=== PATIENT | male | born 1975 | race African-American/Black ===

== ENCOUNTER 2020-03-21 02:47 | Inpatient (IN) ==
[2020-03-21] MEDS ORDERED: ONDANSETRON 4 MG/2 ML VIAL IV PRN (05:14)
[2020-03-21] MEDS ORDERED: diphenhydrAMINE CAP 25 MG CAPSULE PO PRN (05:14)
[2020-03-21] MEDS ORDERED: hydrALAZINE 20 MG/1 ML VIAL IV PRN (05:14)
[2020-03-21] MEDS ORDERED: DEXTROSE 50% 25 GM/50 ML VIAL IV PRN (05:14)
[2020-03-21] MEDS ORDERED: NICOTINE 21 MG/24 HR PATCH TRANSDERM PRN (05:14)
[2020-03-21] MEDS ORDERED: MORPHINE 4 MG/1 ML VIAL IV PRN (05:14)
[2020-03-21] MEDS ORDERED: GLUCAGON 1 MG VIAL IM PRN (05:14)
[2020-03-21] MEDS ORDERED: ACETAMINOPHEN 325 MG TABLET PO PRN (05:14)
[2020-03-21] MEDS: ALBUTEROL/IPRATROPIUM 3 ML NEB RESP TX SCH ×3 (07:24→19:02)
[2020-03-21 07:25] LABS: Basophils # 0.1 10*3/uL (0.0-0.2); Basophils % 1.3 % (0.0-0.8); Eosinophils # 0.2 10*3/uL (0.0-0.87); Eosinophils % 3.1 % (0.00-10.9); Hemoglobin 12.7 GM/DL (14.0-18.0); Immature Granulocytes % 0.1 %; Immature Granulocytes Absolute 0.01 #; Lymphocytes # 3.4 10*3/uL (1.4-4.0); Lymphocytes % 45.2 % (21.2-54.2); Mean Corpuscular HGB Conc 30.2 GM/DL (32-36); Mean Corpuscular Volume 77.8 FL (87-102); Mean Platelet Volume 10.3 FL (9.6-12.0); Monocytes % 10.5 % (1.7-12.7); NRBC # 0.08 10*3/uL; Neutrophils % 39.8 % (38.7-73.9); Platelet Count 145 T/CUMM (130-400); Red Cell Distribution Width 21.1 % (9.3-17.3); White Blood Count 7.4 T/CUMM (4-12)
[2020-03-21 07:26] LABS: Albumin 2.6 G/DL (3.4-5.0); Bilirubin,Total 1.5 MG/DL (0.2-1.0); Calcium 8.6 MG/DL (8.5-10.1); Osmolality,Calculated 280.4 MOS/KG (273-304); Risk Ratio 5.95; Thyroid Stimulating Hormone 2.29 uIU/ml (0.358-3.74); Total Protein 7.9 G/DL (6.4-8.3); VLDL CHOLESTEROL 29.6 MG/DL
[2020-03-21 07:39] LABS: Eosinophils 2 % (0-10); Lymphocytes 34 % (20-55); Segmented Neutrophils 55 % (50-85); Total Cells Counted 100
[2020-03-21 07:40] LABS: Hypochromasia 1+; Macrocytosis Slight; Ovalocytes Slight; Platelet Estimate Adequate; Polychromasia Slight
[2020-03-21 07:41] LABS: Atypical Lymphocytes Few
[2020-03-21] MEDS: carvediloL 3.125 MG TABLET PO SCH ×2 (08:44→21:05)
[2020-03-21] MEDS: ASPIRIN EC 81 MG TABLET PO SCH (08:44)
[2020-03-21] MEDS ORDERED: FUROSEMIDE 40 MG/4 ML VIAL IV SCH (09:00)
[2020-03-21] MEDS: FUROSEMIDE 40 MG/4 ML VIAL IV SCH ×2 (09:02→15:20)
[2020-03-21 09:43] LABS: Bilirubin,Urine Negative (Negative); Blood, Urine Small mg/dL (Negative); Glucose,Urine (UA) Negative (Negative); Hyaline Casts,Urine 8 /LPF (0-3); Ketones,Urine Negative (Negative); Mucus,Urine Occasional /LPF (Occasional); Nitrite,Urine Negative (Negative); Protein,Urine Negative; RBC,Urine 1 /HPF (0-4); Urine Appearance CLEAR (Clear); Urine Color Yellow (Yellow); Urine Urobilinogen < 2.0 EU/DL (0.2-1.0); WBC,Urine 1 /HPF (0-6)
[2020-03-21] MEDS: SPIRONOLACTONE 25 MG TABLET PO SCH (09:48)
[2020-03-21 09:57] LABS: Barbiturates Screen,Urine Negative (Negative); Benzodiazepines Screen,Urine Negative (Negative); Cannabinoid Screen,Urine Negative (Negative); Opiate Screen,Urine Negative (Negative); Phencyclidine Screen,Urine Negative (Negative)
[2020-03-21] MEDS: SACUBITRIL/VALSARTAN 49-51 MG TABLET PO SCH ×2 (11:50→21:05)
[2020-03-21] MEDS ORDERED: SACUBITRIL/VALSARTAN 49-51 MG TABLET PO ONE (12:00)
[2020-03-22] MEDS: ALBUTEROL/IPRATROPIUM 3 ML NEB RESP TX SCH ×4 (00:04→19:37)
[2020-03-22 06:10] LABS: Calcium 8.3 MG/DL (8.5-10.1); Osmolality,Calculated 275.8 MOS/KG (273-304)
[2020-03-22 06:29] LABS: Basophils # 0.1 10*3/uL (0.0-0.2); Basophils % 1.1 % (0.0-0.8); Eosinophils # 0.3 10*3/uL (0.0-0.87); Hematocrit 42.6 VOL% (42.0-52.0); Hemoglobin 12.9 GM/DL (14.0-18.0); Immature Granulocytes % 0.2 %; Immature Granulocytes Absolute 0.01 #; Lymphocytes # 2.3 10*3/uL (1.4-4.0); Lymphocytes % 34.2 % (21.2-54.2); Mean Corpuscular HGB Conc 30.3 GM/DL (32-36); Mean Platelet Volume 10.4 FL (9.6-12.0); Monocytes % 9.9 % (1.7-12.7); NRBC # 0.04 10*3/uL; Neutrophils % 49.6 % (38.7-73.9); Red Blood Count 5.53 MC/CUMM (3.8-5.5); Red Cell Distribution Width 20.2 % (9.3-17.3); White Blood Count 6.6 T/CUMM (4-12)
[2020-03-22 06:41] LABS: Platelet Count 131 T/CUMM (130-400)
[2020-03-22 06:52] LABS: Anisocytosis 2+; Platelet Estimate Adequate
[2020-03-22 06:53] LABS: Burr Cells 1+; Macrocytosis Slight; Polychromasia Slight
[2020-03-22] MEDS: SACUBITRIL/VALSARTAN 49-51 MG TABLET PO SCH ×2 (09:00→21:45)
[2020-03-22] MEDS: SPIRONOLACTONE 25 MG TABLET PO SCH (09:00)
[2020-03-22] MEDS: ASPIRIN EC 81 MG TABLET PO SCH (09:00)
[2020-03-22] MEDS: carvediloL 3.125 MG TABLET PO SCH ×2 (09:00→21:45)
[2020-03-22] MEDS: FUROSEMIDE 40 MG/4 ML VIAL IV SCH ×2 (09:01→16:19)
[2020-03-23] MEDS: ALBUTEROL/IPRATROPIUM 3 ML NEB RESP TX SCH ×4 (00:43→18:51)
[2020-03-23 05:15] LABS: Basophils # 0.1 10*3/uL (0.0-0.2); Basophils % 1.1 % (0.0-0.8); Eosinophils # 0.3 10*3/uL (0.0-0.87); Eosinophils % 4.5 % (0.00-10.9); Hematocrit 40.2 VOL% (42.0-52.0); Hemoglobin 12.1 GM/DL (14.0-18.0); Immature Granulocytes % 0.3 %; Immature Granulocytes Absolute 0.02 #; Lymphocytes # 2.8 10*3/uL (1.4-4.0); Lymphocytes % 41.8 % (21.2-54.2); Mean Corpuscular HGB Conc 30.1 GM/DL (32-36); Mean Corpuscular Volume 77.6 FL (87-102); Mean Platelet Volume 9.5 FL (9.6-12.0); Monocytes % 10.2 % (1.7-12.7); NRBC # 0.07 10*3/uL; Neutrophils % 42.1 % (38.7-73.9); Platelet Count 213 T/CUMM (130-400); Red Blood Count 5.18 MC/CUMM (3.8-5.5); Red Cell Distribution Width 20.1 % (9.3-17.3); White Blood Count 6.6 T/CUMM (4-12)
[2020-03-23 05:54] LABS: Eosinophils 7 % (0-10); Lymphocytes 31 % (20-55); Microcytosis 1+; Platelet Estimate Normal; Segmented Neutrophils 53 % (50-85); Total Cells Counted 100
[2020-03-23 06:02] LABS: Calcium 8.1 MG/DL (8.5-10.1)
[2020-03-23] MEDS: SACUBITRIL/VALSARTAN 49-51 MG TABLET PO SCH ×2 (09:14→21:26)
[2020-03-23] MEDS: SPIRONOLACTONE 25 MG TABLET PO SCH (09:15)
[2020-03-23] MEDS: carvediloL 3.125 MG TABLET PO SCH (09:15)
[2020-03-23] MEDS: FUROSEMIDE 40 MG/4 ML VIAL IV SCH ×2 (09:15→15:48)
[2020-03-23] MEDS: ASPIRIN EC 81 MG TABLET PO SCH (09:15)
[2020-03-23] MEDS: carvediloL 6.25 MG TABLET PO SCH (21:25)
[2020-03-24] MEDS: ALBUTEROL/IPRATROPIUM 3 ML NEB RESP TX SCH ×4 (01:26→18:55)
[2020-03-24 06:16] LABS: Calcium 8.2 MG/DL (8.5-10.1)
[2020-03-24 06:24] LABS: Basophils # 0.1 10*3/uL (0.0-0.2); Eosinophils # 0.3 10*3/uL (0.0-0.87); Eosinophils % 4.9 % (0.00-10.9); Hematocrit 42.2 VOL% (42.0-52.0); Hemoglobin 12.6 GM/DL (14.0-18.0); Immature Granulocytes % 0.2 %; Immature Granulocytes Absolute 0.01 #; Lymphocytes # 2.4 10*3/uL (1.4-4.0); Lymphocytes % 42.5 % (21.2-54.2); Mean Corpuscular HGB Conc 29.9 GM/DL (32-36); Mean Corpuscular Volume 78.7 FL (87-102); Mean Platelet Volume 9.5 FL (9.6-12.0); Monocytes % 11.7 % (1.7-12.7); NRBC # 0.03 10*3/uL; Neutrophils % 39.7 % (38.7-73.9); Platelet Count 151 T/CUMM (130-400); Red Blood Count 5.36 MC/CUMM (3.8-5.5); Red Cell Distribution Width 20.1 % (9.3-17.3); White Blood Count 5.7 T/CUMM (4-12)
[2020-03-24] MEDS ORDERED: MAGNESIUM SULF RIDER 2 GM in PREMIX 1 EACH IV ONE (08:09)
[2020-03-24] MEDS: SPIRONOLACTONE 25 MG TABLET PO SCH (09:43)
[2020-03-24] MEDS: FUROSEMIDE 40 MG/4 ML VIAL IV SCH ×2 (09:43→16:27)
[2020-03-24] MEDS: SACUBITRIL/VALSARTAN 49-51 MG TABLET PO SCH ×2 (09:43→21:35)
[2020-03-24] MEDS: ASPIRIN EC 81 MG TABLET PO SCH (09:43)
[2020-03-24] MEDS: carvediloL 6.25 MG TABLET PO SCH ×2 (10:11→21:35)
[2020-03-25] MEDS: ALBUTEROL/IPRATROPIUM 3 ML NEB RESP TX SCH ×4 (01:47→19:15)
[2020-03-25 05:55] LABS: Calcium 8.5 MG/DL (8.5-10.1)
[2020-03-25 06:57] LABS: Basophils # 0.1 10*3/uL (0.0-0.2); Basophils % 1.2 % (0.0-0.8); Eosinophils # 0.3 10*3/uL (0.0-0.87); Hematocrit 40.4 VOL% (42.0-52.0); Hemoglobin 12.2 GM/DL (14.0-18.0); Immature Granulocytes % 0.3 %; Immature Granulocytes Absolute 0.02 #; Lymphocytes # 2.3 10*3/uL (1.4-4.0); Lymphocytes % 40.4 % (21.2-54.2); Mean Corpuscular HGB Conc 30.2 GM/DL (32-36); Mean Corpuscular Volume 77.4 FL (87-102); Mean Platelet Volume 9.6 FL (9.6-12.0); Monocytes % 11.6 % (1.7-12.7); NRBC # 0.02 10*3/uL; Neutrophils % 41.5 % (38.7-73.9); Platelet Count 96 T/CUMM (130-400); Red Blood Count 5.22 MC/CUMM (3.8-5.5); Red Cell Distribution Width 19.8 % (9.3-17.3); White Blood Count 5.8 T/CUMM (4-12)
[2020-03-25 07:02] LABS: Eosinophils 11 % (0-10); Lymphocytes 20 % (20-55); Segmented Neutrophils 56 % (50-85); Total Cells Counted 100
[2020-03-25 07:03] LABS: Hypochromasia 1+; Microcytosis 1+
[2020-03-25] MEDS: carvediloL 6.25 MG TABLET PO SCH ×2 (08:47→20:45)
[2020-03-25] MEDS: SPIRONOLACTONE 25 MG TABLET PO SCH (08:47)
[2020-03-25] MEDS: ASPIRIN EC 81 MG TABLET PO SCH (08:47)
[2020-03-25] MEDS: FUROSEMIDE 40 MG/4 ML VIAL IV SCH ×2 (08:47→15:18)
[2020-03-25] MEDS: SACUBITRIL/VALSARTAN 49-51 MG TABLET PO SCH ×2 (08:47→20:45)
[2020-03-26] MEDS: ALBUTEROL/IPRATROPIUM 3 ML NEB RESP TX SCH ×4 (01:04→19:41)
[2020-03-26 06:46] LABS: Calcium 8.6 MG/DL (8.5-10.1); Osmolality,Calculated 277.7 MOS/KG (273-304)
[2020-03-26 07:09] LABS: Basophils # 0.1 10*3/uL (0.0-0.2); Basophils % 1.3 % (0.0-0.8); Eosinophils # 0.3 10*3/uL (0.0-0.87); Eosinophils % 4.2 % (0.00-10.9); Hematocrit 39.7 VOL% (42.0-52.0); Immature Granulocytes % 0.3 %; Immature Granulocytes Absolute 0.02 #; Lymphocytes # 2.7 10*3/uL (1.4-4.0); Lymphocytes % 42.3 % (21.2-54.2); Mean Corpuscular HGB Conc 30.5 GM/DL (32-36); Mean Corpuscular Volume 76.5 FL (87-102); Mean Platelet Volume 9.6 FL (9.6-12.0); NRBC # 0.02 10*3/uL; Neutrophils % 39.9 % (38.7-73.9); Red Blood Count 5.19 MC/CUMM (3.8-5.5); Red Cell Distribution Width 19.8 % (9.3-17.3); White Blood Count 6.3 T/CUMM (4-12)
[2020-03-26 07:11] LABS: Hemoglobin 12.1 GM/DL (14.0-18.0)
[2020-03-26 07:12] LABS: Platelet Count 42 T/CUMM (130-400)
[2020-03-26 07:13] LABS: Hypochromasia 1+; Platelet Estimate Decreased
[2020-03-26 07:14] LABS: Microcytosis 1+
[2020-03-26] MEDS: SPIRONOLACTONE 25 MG TABLET PO SCH (09:05)
[2020-03-26] MEDS: carvediloL 6.25 MG TABLET PO SCH ×2 (09:05→20:57)
[2020-03-26] MEDS: ASPIRIN EC 81 MG TABLET PO SCH (09:05)
[2020-03-26] MEDS: FUROSEMIDE 40 MG/4 ML VIAL IV SCH ×2 (09:05→16:19)
[2020-03-26] MEDS: SACUBITRIL/VALSARTAN 49-51 MG TABLET PO SCH ×2 (09:06→20:57)
[2020-03-26] MEDS: SODIUM CHLORIDE 0.9% 1,000 ML IV SCH (09:07)
[2020-03-26] MEDS ORDERED: POTASSIUM CHLORIDE RIDER 10 MEQ in PREMIX 1 EACH IV PRN (12:00)
[2020-03-26] MEDS ORDERED: MAGNESIUM SULF RIDER 2 GM in PREMIX 1 EACH IV PRN (12:00)
[2020-03-27] MEDS: ALBUTEROL/IPRATROPIUM 3 ML NEB RESP TX SCH ×4 (00:48→19:15)
[2020-03-27 05:47] LABS: Calcium 8.8 MG/DL (8.5-10.1); Osmolality,Calculated 275.8 MOS/KG (273-304)
[2020-03-27] MEDS: SODIUM CHLORIDE 0.9% 1,000 ML IV SCH (06:13)
[2020-03-27] MEDS ORDERED: DIAZEPAM 5 MG TABLET PO ONE (07:00)
[2020-03-27] MEDS ORDERED: diphenhydrAMINE CAP 25 MG CAPSULE PO ONE (07:00)
[2020-03-27 07:08] LABS: Basophils # 0.1 10*3/uL (0.0-0.2); Basophils % 1.4 % (0.0-0.8); Eosinophils # 0.3 10*3/uL (0.0-0.87); Eosinophils % 4.3 % (0.00-10.9); Hematocrit 42.6 VOL% (42.0-52.0); Immature Granulocytes % 0.2 %; Immature Granulocytes Absolute 0.01 #; Lymphocytes # 2.5 10*3/uL (1.4-4.0); Lymphocytes % 38.4 % (21.2-54.2); Mean Corpuscular HGB Conc 29.1 GM/DL (32-36); Mean Corpuscular Volume 78.3 FL (87-102); Mean Platelet Volume 10.6 FL (9.6-12.0); Monocytes % 11.9 % (1.7-12.7); Neutrophils % 43.8 % (38.7-73.9); Platelet Count 131 T/CUMM (130-400); Red Blood Count 5.44 MC/CUMM (3.8-5.5); Red Cell Distribution Width 19.9 % (9.3-17.3); White Blood Count 6.5 T/CUMM (4-12)
[2020-03-27 07:52] LABS: Hemoglobin 12.4 GM/DL (14.0-18.0)
[2020-03-27 07:56] LABS: Hypochromasia 1+; Microcytosis Slight; Ovalocytes Slight
[2020-03-27] MEDS: ASPIRIN EC 81 MG TABLET PO SCH (08:54)
[2020-03-27] MEDS: SACUBITRIL/VALSARTAN 49-51 MG TABLET PO SCH ×2 (08:54→20:46)
[2020-03-27] MEDS: carvediloL 6.25 MG TABLET PO SCH (08:55)
[2020-03-27] MEDS: SPIRONOLACTONE 25 MG TABLET PO SCH (08:55)
[2020-03-27] MEDS: FUROSEMIDE 40 MG/4 ML VIAL IV SCH ×2 (10:37→16:57)
[2020-03-27] MEDS: carvediloL 12.5 MG TABLET PO SCH (20:46)
[2020-03-28] MEDS: ALBUTEROL/IPRATROPIUM 3 ML NEB RESP TX SCH ×2 (02:07→07:21)
[2020-03-28] MEDS: SODIUM CHLORIDE 0.9% 1,000 ML IV SCH (02:12)
[2020-03-28 06:58] LABS: Basophils # 0.1 10*3/uL (0.0-0.2); Basophils % 1.2 % (0.0-0.8); Eosinophils # 0.2 10*3/uL (0.0-0.87); Hematocrit 41.6 VOL% (42.0-52.0); Immature Granulocytes % 0.2 %; Immature Granulocytes Absolute 0.01 #; Lymphocytes # 2.5 10*3/uL (1.4-4.0); Lymphocytes % 43.6 % (21.2-54.2); Mean Corpuscular HGB Conc 29.3 GM/DL (32-36); Mean Corpuscular Volume 78.5 FL (87-102); Mean Platelet Volume 9.7 FL (9.6-12.0); Monocytes % 12.5 % (1.7-12.7); Neutrophils % 38.5 % (38.7-73.9); Platelet Count 111 T/CUMM (130-400); Red Cell Distribution Width 19.6 % (9.3-17.3); White Blood Count 5.8 T/CUMM (4-12)
[2020-03-28 07:27] LABS: Calcium 8.7 MG/DL (8.5-10.1); Osmolality,Calculated 269.2 MOS/KG (273-304)
[2020-03-28 08:04] LABS: Hemoglobin 12.2 GM/DL (14.0-18.0)
[2020-03-28] MEDS: ASPIRIN EC 81 MG TABLET PO SCH (08:12)
[2020-03-28] MEDS: SACUBITRIL/VALSARTAN 49-51 MG TABLET PO SCH (08:12)
[2020-03-28] MEDS: SPIRONOLACTONE 25 MG TABLET PO SCH (08:12)
[2020-03-28 08:13] LABS: Hypochromasia 2+; Microcytosis 1+
[2020-03-28] MEDS: FUROSEMIDE 40 MG/4 ML VIAL IV SCH (08:13)
[2020-03-28 08:16] LABS: Ovalocytes Slight
[2020-03-28] MEDS: carvediloL 12.5 MG TABLET PO SCH (08:16)
[2020-03-28] MEDS ORDERED: KETOROLAC 30 MG/1 ML VIAL IV ONE (08:36)
[2020-03-28] MEDS ORDERED: COLCHICINE 0.6 MG CAPSULE PO ONE (10:31)
[2020-03-28] MEDS ORDERED: predniSONE 10 MG TABLET PO SCH (12:00)
[2020-03-28 12:14] VITALS: BP 130/89
[2020-03-28] MEDS ORDERED: COLCHICINE 0.6 MG CAPSULE PO SCH (21:00)
[2020-03-29] MEDS ORDERED: FUROSEMIDE 40 MG TABLET PO SCH (09:00)
[2020-03-30] MEDS ORDERED: COLCHICINE 0.6 MG CAPSULE PO SCH (09:00)
== END 2020-03-28 14:05 | disposition home or self-care (01) | DRG 292 ==
LOC: N.TELEN → SUATTDRO 03:52
PROVIDERS: ADMIT Internal Medicine; ATTEND Internal Medicine

== ENCOUNTER 2020-04-09 08:08 | Inpatient (IN) ==
[2020-04-09 08:32] LABS: Basophils # 0.1 10*3/uL (0.0-0.2); Basophils % 0.3 % (0.0-0.8); Eosinophils % 0.3 % (0.00-10.9); Hematocrit 40.8 VOL% (42.0-52.0); Hemoglobin 12.3 GM/DL (14.0-18.0); Immature Granulocytes % 0.6 %; Immature Granulocytes Absolute 0.09 #; Lymphocytes # 1.9 10*3/uL (1.4-4.0); Lymphocytes % 13.5 % (21.2-54.2); Mean Corpuscular HGB Conc 30.1 GM/DL (32-36); Mean Corpuscular Volume 76.1 FL (87-102); Mean Platelet Volume 9.7 FL (9.6-12.0); Monocytes % 13.2 % (1.7-12.7); NRBC # 0.06 10*3/uL; Neutrophils % 72.1 % (38.7-73.9); Platelet Count 141 T/CUMM (130-400); Red Blood Count 5.36 MC/CUMM (3.8-5.5); Red Cell Distribution Width 19.3 % (9.3-17.3); White Blood Count 14.4 T/CUMM (4-12)
[2020-04-09 08:49] LABS: Hypochromasia 2+
[2020-04-09 08:50] LABS: Anisocytosis 1+; Microcytosis 1+; Ovalocytes Slight; Polychromasia Slight; Target Cells Slight
[2020-04-09 08:53] LABS: INR 1.4; PT Patient Result 14.4 SECS (9.8-11.9); Partial Thromboplastin Time 43.3 SECS (23.9-33.8)
[2020-04-09 08:55] LABS: Albumin 2.6 G/DL (3.4-5.0); Calcium 8.7 MG/DL (8.5-10.1); Osmolality,Calculated 275.8 MOS/KG (273-304); Total Protein 7.6 G/DL (6.4-8.3)
[2020-04-09] MEDS ORDERED: DIAZEPAM 5 MG TABLET PO STA (09:24)
[2020-04-09] MEDS ORDERED: diphenhydrAMINE CAP 50 MG CAPSULE PO STA (09:24)
[2020-04-09] MEDS ORDERED: diphenhydrAMINE CAP 25 MG CAPSULE ONE (09:28)
[2020-04-09] MEDS ORDERED: LIDOCAINE 1% 20 ML VIAL ONE (09:58)
[2020-04-09] MEDS ORDERED: HEPARIN/NACL 0.9% 2 UNITS/ML 1,000 ML IV ONE (09:58)
[2020-04-09] MEDS ORDERED: MIDAZOLAM 2 MG/2 ML VIAL ONE (10:12)
[2020-04-09] MEDS ORDERED: fentaNYL 100 MCG/2 ML VIAL ONE (10:12)
[2020-04-09] MEDS ORDERED: DOCUSATE SODIUM 100 MG CAPSULE PO PRN (10:15)
[2020-04-09] MEDS ORDERED: ALBUTEROL 2.5 MG/3 ML NEB RESP TX PRN (10:15)
[2020-04-09] MEDS ORDERED: ACETAMINOPHEN 325 MG TABLET PO PRN (10:15)
[2020-04-09] MEDS ORDERED: ONDANSETRON 4 MG/2 ML VIAL IV PRN (10:15)
[2020-04-09] MEDS ORDERED: HEPARIN 5,000 UNIT/1 ML VIAL ONE ×2 (10:18→11:39)
[2020-04-09] MEDS ORDERED: HEPARIN/NACL 0.9% 2 UNITS/ML 500 ML IV ONE (11:08)
[2020-04-09] MEDS ORDERED: CLOPIDOGREL 300 MG TABLET ONE (11:33)
[2020-04-09] MEDS ORDERED: FUROSEMIDE 40 MG/4 ML VIAL IV STA (12:26)
[2020-04-09] MEDS ORDERED: FUROSEMIDE 40 MG/4 ML VIAL ONE ×2 (12:26→12:28)
[2020-04-09 12:57] LABS: Bilirubin,Urine Negative (Negative); Blood, Urine Moderate mg/dL (Negative); Glucose,Urine (UA) Negative (Negative); Ketones,Urine Negative (Negative); Nitrite,Urine Negative (Negative); Protein,Urine Negative; RBC,Urine 37 /HPF (0-4); Squamous Epithelial Cell,Urine Occasional /HPF (0-10); Urine Appearance CLEAR (Clear); Urine Color Yellow (Yellow); Urine Specific Gravity > 1.060 (1.001-1.035); WBC,Urine 1 /HPF (0-6)
[2020-04-09] MEDS ORDERED: INFLUENZA VIRUS VACCINE 0.5 ML SYRINGE IM ONE (13:28)
[2020-04-09] MEDS ORDERED: PNEUMOCOCCAL VACCINE (23 VALENT) 0.5 ML VIAL IM ONE (13:50)
[2020-04-09] MEDS ORDERED: CLOPIDOGREL 300 MG TABLET PO ONE (13:53)
[2020-04-09] MEDS: RIVAROXABAN 15 MG TABLET PO SCH ×2 (14:37→16:17)
[2020-04-09] MEDS: FUROSEMIDE 40 MG/4 ML VIAL IV SCH (16:16)
[2020-04-09] MEDS: carvediloL 12.5 MG TABLET PO SCH (20:46)
[2020-04-09] MEDS: MAGNESIUM OXIDE 400 MG TABLET PO SCH (20:46)
[2020-04-10 04:20] LABS: Basophils % 0.3 % (0.0-0.8); Eosinophils % 0.2 % (0.00-10.9); Hematocrit 37.2 VOL% (42.0-52.0); Hemoglobin 11.2 GM/DL (14.0-18.0); Immature Granulocytes % 0.5 %; Immature Granulocytes Absolute 0.07 #; Lymphocytes # 1.5 10*3/uL (1.4-4.0); Lymphocytes % 10.5 % (21.2-54.2); Mean Corpuscular HGB Conc 30.1 GM/DL (32-36); Mean Corpuscular Volume 76.1 FL (87-102); NRBC # 0.04 10*3/uL; Neutrophils % 74.5 % (38.7-73.9); Platelet Count 124 T/CUMM (130-400); Red Blood Count 4.89 MC/CUMM (3.8-5.5); Red Cell Distribution Width 18.6 % (9.3-17.3); White Blood Count 14.2 T/CUMM (4-12)
[2020-04-10 04:28] LABS: INR 1.8
[2020-04-10 04:38] LABS: Hypochromasia 2+
[2020-04-10 04:39] LABS: Microcytosis 2+; Ovalocytes Slight; Target Cells Slight
[2020-04-10 04:41] LABS: Albumin 2.2 G/DL (3.4-5.0); Bilirubin,Total 2.6 MG/DL (0.2-1.0); Calcium 8.4 MG/DL (8.5-10.1); Osmolality,Calculated 275.1 MOS/KG (273-304); Risk Ratio 4.23; Total Protein 7.3 G/DL (6.4-8.3); VLDL CHOLESTEROL 11.6 MG/DL
[2020-04-10] MEDS ORDERED: ASPIRIN EC 81 MG TABLET PO SCH (09:00)
[2020-04-10] MEDS: CLOPIDOGREL 75 MG TABLET PO SCH (10:24)
[2020-04-10] MEDS: MAGNESIUM OXIDE 400 MG TABLET PO SCH ×2 (10:24→20:36)
[2020-04-10] MEDS: carvediloL 12.5 MG TABLET PO SCH ×2 (10:24→20:36)
[2020-04-10] MEDS: RIVAROXABAN 15 MG TABLET PO SCH ×2 (10:26→17:10)
[2020-04-10] MEDS: PANTOPRAZOLE 40 MG TABLET PO SCH (10:26)
[2020-04-10] MEDS: SPIRONOLACTONE 25 MG TABLET PO SCH (10:26)
[2020-04-10] MEDS: FUROSEMIDE 40 MG/4 ML VIAL IV SCH ×2 (10:27→17:07)
[2020-04-11 04:51] LABS: Basophils # 0.1 10*3/uL (0.0-0.2); Basophils % 0.3 % (0.0-0.8); Eosinophils # 0.1 10*3/uL (0.0-0.87); Eosinophils % 0.5 % (0.00-10.9); Hematocrit 33.3 VOL% (42.0-52.0); Hemoglobin 10.1 GM/DL (14.0-18.0); Immature Granulocytes % 0.6 %; Immature Granulocytes Absolute 0.09 #; Lymphocytes # 1.7 10*3/uL (1.4-4.0); Lymphocytes % 11.4 % (21.2-54.2); Mean Corpuscular HGB Conc 30.3 GM/DL (32-36); Mean Corpuscular Volume 75.9 FL (87-102); Mean Platelet Volume 10.6 FL (9.6-12.0); Monocytes % 13.7 % (1.7-12.7); NRBC # 0.03 10*3/uL; Neutrophils % 73.5 % (38.7-73.9); Platelet Count 166 T/CUMM (130-400); Red Blood Count 4.39 MC/CUMM (3.8-5.5); Red Cell Distribution Width 18.3 % (9.3-17.3); White Blood Count 14.6 T/CUMM (4-12)
[2020-04-11 05:06] LABS: Calcium 8.3 MG/DL (8.5-10.1); Osmolality,Calculated 270.2 MOS/KG (273-304)
[2020-04-11 05:17] LABS: Hypochromasia 1+; Microcytosis 1+
[2020-04-11] MEDS: FUROSEMIDE 40 MG/4 ML VIAL IV SCH (09:15)
[2020-04-11] MEDS: RIVAROXABAN 15 MG TABLET PO SCH ×2 (09:26→18:38)
[2020-04-11] MEDS: PANTOPRAZOLE 40 MG TABLET PO SCH (09:26)
[2020-04-11] MEDS: SPIRONOLACTONE 25 MG TABLET PO SCH (09:26)
[2020-04-11] MEDS: CLOPIDOGREL 75 MG TABLET PO SCH (09:26)
[2020-04-11] MEDS: MAGNESIUM OXIDE 400 MG TABLET PO SCH ×2 (09:26→21:15)
[2020-04-11] MEDS: carvediloL 12.5 MG TABLET PO SCH ×2 (09:26→21:15)
[2020-04-11] MEDS ORDERED: GLUCAGON 1 MG VIAL IM PRN ×2 (15:32→16:07)
[2020-04-11] MEDS ORDERED: DEXTROSE 50% 25 GM/50 ML VIAL IV PRN ×2 (15:32→16:07)
[2020-04-11 17:11] LABS: Cancer Antigen 19-9 30.4 U/ML (0-37); Carcinoembryonic Antigen 0.6 NG/ML (0.0-5.0)
[2020-04-11] MEDS: INSULIN REGULAR 100 UNIT/ML SUBCUT SCH ×2 (18:38→21:17)
[2020-04-11] MEDS: FUROSEMIDE 40 MG TABLET PO SCH (18:38)
[2020-04-12 05:31] LABS: Basophils % 0.4 % (0.0-0.8); Eosinophils # 0.1 10*3/uL (0.0-0.87); Eosinophils % 1.1 % (0.00-10.9); Hematocrit 34.2 VOL% (42.0-52.0); Hemoglobin 10.3 GM/DL (14.0-18.0); Immature Granulocytes % 0.5 %; Immature Granulocytes Absolute 0.06 #; Lymphocytes # 1.5 10*3/uL (1.4-4.0); Lymphocytes % 13.5 % (21.2-54.2); Mean Corpuscular HGB Conc 30.1 GM/DL (32-36); Mean Corpuscular Volume 76.2 FL (87-102); Mean Platelet Volume 9.6 FL (9.6-12.0); Monocytes % 14.8 % (1.7-12.7); Neutrophils % 69.7 % (38.7-73.9); Platelet Count 178 T/CUMM (130-400); Red Blood Count 4.49 MC/CUMM (3.8-5.5); Red Cell Distribution Width 18.4 % (9.3-17.3); White Blood Count 11.1 T/CUMM (4-12)
[2020-04-12 05:51] LABS: Calcium 8.2 MG/DL (8.5-10.1); Osmolality,Calculated 271.4 MOS/KG (273-304)
[2020-04-12] MEDS: INSULIN REGULAR 100 UNIT/ML SUBCUT SCH ×4 (07:40→22:14)
[2020-04-12] MEDS: FUROSEMIDE 40 MG TABLET PO SCH ×2 (08:33→16:45)
[2020-04-12] MEDS: MAGNESIUM OXIDE 400 MG TABLET PO SCH ×2 (08:33→20:17)
[2020-04-12] MEDS: RIVAROXABAN 15 MG TABLET PO SCH ×2 (08:33→17:11)
[2020-04-12] MEDS: CLOPIDOGREL 75 MG TABLET PO SCH (08:33)
[2020-04-12] MEDS: carvediloL 12.5 MG TABLET PO SCH ×2 (08:33→20:17)
[2020-04-12] MEDS: SPIRONOLACTONE 25 MG TABLET PO SCH (08:33)
[2020-04-12] MEDS: PANTOPRAZOLE 40 MG TABLET PO SCH (08:38)
[2020-04-13] MEDS: INSULIN REGULAR 100 UNIT/ML SUBCUT SCH ×4 (08:47→21:01)
[2020-04-13] MEDS: SPIRONOLACTONE 25 MG TABLET PO SCH (08:48)
[2020-04-13] MEDS: carvediloL 12.5 MG TABLET PO SCH ×2 (08:48→20:59)
[2020-04-13] MEDS: RIVAROXABAN 15 MG TABLET PO SCH ×2 (08:48→17:45)
[2020-04-13] MEDS: FUROSEMIDE 40 MG TABLET PO SCH ×2 (08:48→17:44)
[2020-04-13] MEDS: CLOPIDOGREL 75 MG TABLET PO SCH (08:48)
[2020-04-13] MEDS: PANTOPRAZOLE 40 MG TABLET PO SCH (08:48)
[2020-04-13] MEDS: MAGNESIUM OXIDE 400 MG TABLET PO SCH ×2 (08:48→20:59)
[2020-04-13] MEDS: ROSUVASTATIN 20 MG TABLET PO SCH (20:59)
[2020-04-14 06:46] LABS: Basophils % 0.5 % (0.0-0.8); Eosinophils # 0.2 10*3/uL (0.0-0.87); Hematocrit 32.9 VOL% (42.0-52.0); Immature Granulocytes % 0.5 %; Immature Granulocytes Absolute 0.04 #; Lymphocytes # 1.5 10*3/uL (1.4-4.0); Mean Corpuscular HGB Conc 30.4 GM/DL (32-36); Mean Corpuscular Volume 75.8 FL (87-102); Mean Platelet Volume 9.8 FL (9.6-12.0); Monocytes % 13.4 % (1.7-12.7); Neutrophils % 65.6 % (38.7-73.9); Platelet Count 163 T/CUMM (130-400); Red Blood Count 4.34 MC/CUMM (3.8-5.5); White Blood Count 8.4 T/CUMM (4-12)
[2020-04-14 07:08] LABS: Calcium 8.3 MG/DL (8.5-10.1); Osmolality,Calculated 264.7 MOS/KG (273-304)
[2020-04-14] MEDS: MAGNESIUM OXIDE 400 MG TABLET PO SCH ×2 (09:13→21:13)
[2020-04-14] MEDS: CLOPIDOGREL 75 MG TABLET PO SCH (09:14)
[2020-04-14] MEDS: carvediloL 12.5 MG TABLET PO SCH ×2 (09:14→21:13)
[2020-04-14] MEDS: FUROSEMIDE 40 MG TABLET PO SCH ×2 (09:14→16:11)
[2020-04-14] MEDS: PANTOPRAZOLE 40 MG TABLET PO SCH (09:14)
[2020-04-14] MEDS: INSULIN REGULAR 100 UNIT/ML SUBCUT SCH ×4 (09:14→20:02)
[2020-04-14] MEDS: SPIRONOLACTONE 25 MG TABLET PO SCH (09:14)
[2020-04-14] MEDS: RIVAROXABAN 15 MG TABLET PO SCH ×2 (09:14→16:11)
[2020-04-14] MEDS ORDERED: SODIUM CHLORIDE 0.9% 250 ML IV ONE (13:31)
[2020-04-14] MEDS: ROSUVASTATIN 20 MG TABLET PO SCH (21:12)
[2020-04-15 05:19] LABS: Basophils % 0.5 % (0.0-0.8); Eosinophils # 0.2 10*3/uL (0.0-0.87); Eosinophils % 1.8 % (0.00-10.9); Hematocrit 33.1 VOL% (42.0-52.0); Hemoglobin 9.8 GM/DL (14.0-18.0); Immature Granulocytes % 0.5 %; Immature Granulocytes Absolute 0.04 #; Lymphocytes # 1.6 10*3/uL (1.4-4.0); Lymphocytes % 18.1 % (21.2-54.2); Mean Corpuscular HGB Conc 29.6 GM/DL (32-36); Mean Corpuscular Volume 76.8 FL (87-102); Mean Platelet Volume 9.7 FL (9.6-12.0); Monocytes % 12.3 % (1.7-12.7); NRBC # 0.02 10*3/uL; Neutrophils % 66.8 % (38.7-73.9); Platelet Count 194 T/CUMM (130-400); Red Blood Count 4.31 MC/CUMM (3.8-5.5); Red Cell Distribution Width 17.8 % (9.3-17.3); White Blood Count 8.7 T/CUMM (4-12)
[2020-04-15 05:38] LABS: Calcium 8.1 MG/DL (8.5-10.1); Osmolality,Calculated 270.2 MOS/KG (273-304)
[2020-04-15 05:47] LABS: Eosinophils 4 % (0-10); Hypochromasia 1+; Lymphocytes 11 % (20-55); Ovalocytes Slight; Platelet Estimate Adequate; Segmented Neutrophils 71 % (50-85); Total Cells Counted 100
[2020-04-15 05:48] LABS: Microcytosis Slight
[2020-04-15] MEDS: INSULIN REGULAR 100 UNIT/ML SUBCUT SCH ×4 (08:31→21:43)
[2020-04-15] MEDS: FUROSEMIDE 40 MG TABLET PO SCH ×2 (09:42→16:25)
[2020-04-15] MEDS: PANTOPRAZOLE 40 MG TABLET PO SCH (09:42)
[2020-04-15] MEDS: CLOPIDOGREL 75 MG TABLET PO SCH (09:42)
[2020-04-15] MEDS: SPIRONOLACTONE 25 MG TABLET PO SCH (09:43)
[2020-04-15] MEDS: carvediloL 12.5 MG TABLET PO SCH ×2 (09:43→21:43)
[2020-04-15] MEDS: MAGNESIUM OXIDE 400 MG TABLET PO SCH ×2 (09:43→21:40)
[2020-04-15] MEDS: RIVAROXABAN 15 MG TABLET PO SCH ×2 (09:43→16:25)
[2020-04-15] MEDS: LOSARTAN 25 MG TABLET PO SCH (10:07)
[2020-04-15 12:16] LABS: Protein C Activity Plasma 43 % (70 - 150); Protein S Ag (Free) 114 % (65 - 160)
[2020-04-15 12:56] LABS: DRVVT Screen Ratio 1.94 ratio (<1.20); INR 2.6 (0.9-1.1)
[2020-04-15] MEDS ORDERED: DICLOFENAC SODIUM 50 MG TABLET PO PRN (13:36)
[2020-04-15 18:41] LABS: Protein S Activity Plasma 162 % (65 - 160)
[2020-04-15] MEDS ORDERED: DICLOFENAC SODIUM 50 MG TABLET PO SCH (21:00)
[2020-04-15] MEDS: ROSUVASTATIN 20 MG TABLET PO SCH (21:40)
[2020-04-16 05:27] LABS: Basophils # 0.1 10*3/uL (0.0-0.2); Basophils % 0.7 % (0.0-0.8); Eosinophils # 0.2 10*3/uL (0.0-0.87); Eosinophils % 1.6 % (0.00-10.9); Hematocrit 33.6 VOL% (42.0-52.0); Immature Granulocytes % 0.3 %; Immature Granulocytes Absolute 0.03 #; Lymphocytes # 1.6 10*3/uL (1.4-4.0); Lymphocytes % 15.6 % (21.2-54.2); Mean Corpuscular HGB Conc 29.8 GM/DL (32-36); Mean Corpuscular Volume 76.2 FL (87-102); Mean Platelet Volume 9.6 FL (9.6-12.0); Monocytes % 12.2 % (1.7-12.7); NRBC # 0.02 10*3/uL; Neutrophils % 69.6 % (38.7-73.9); Platelet Count 330 T/CUMM (130-400); Red Blood Count 4.41 MC/CUMM (3.8-5.5); Red Cell Distribution Width 18.1 % (9.3-17.3); White Blood Count 10.1 T/CUMM (4-12)
[2020-04-16 05:48] LABS: Calcium 8.3 MG/DL (8.5-10.1); Osmolality,Calculated 269.2 MOS/KG (273-304)
[2020-04-16] MEDS: SPIRONOLACTONE 25 MG TABLET PO SCH (09:16)
[2020-04-16] MEDS: carvediloL 12.5 MG TABLET PO SCH (09:16)
[2020-04-16] MEDS: FUROSEMIDE 40 MG TABLET PO SCH ×2 (09:16→17:02)
[2020-04-16] MEDS: PANTOPRAZOLE 40 MG TABLET PO SCH (09:16)
[2020-04-16] MEDS: CLOPIDOGREL 75 MG TABLET PO SCH (09:16)
[2020-04-16] MEDS: INSULIN REGULAR 100 UNIT/ML SUBCUT SCH (09:17)
[2020-04-16] MEDS: RIVAROXABAN 15 MG TABLET PO SCH ×2 (09:17→17:02)
[2020-04-16] MEDS: MAGNESIUM OXIDE 400 MG TABLET PO SCH (09:17)
[2020-04-16] MEDS: LOSARTAN 25 MG TABLET PO SCH (09:18)
[2020-04-16] MEDS ORDERED: predniSONE 10 MG TABLET PO SCH (11:30)
[2020-04-16 15:55] VITALS: BP 106/62
[2020-04-18 15:46] LABS: FACV Specimen Whole Blood
[2020-04-25 22:21] LABS: DRVVT Confirmation 0.76 ratio (<1.20); PT Mix 1:1 (Mayo Reflex) 16.1 sec (9.4 - 12.5); Thrombin Time (Bovine), P 19.6 sec
== END 2020-04-16 18:38 | disposition home health service (06) | DRG 951 ==
LOC: EDUNIT# → EDBD → N.ED 08:08 → N.ICU 10:00 → SUATTDRO 10:15 → N.EDINP 10:15 → N.ICU 13:15 → N.TELES 04-13 01:53
PROVIDERS: ADMIT Internal Medicine; ATTEND Family Medicine

== ENCOUNTER 2020-04-22 13:57 | Observation (INO) ==
[2020-04-22] MEDS ORDERED: ASPIRIN 325 MG TABLET PO STA (14:21)
[2020-04-22 14:59] LABS: INR 1.9; PT Patient Result 19.4 SECS (9.8-11.9)
[2020-04-22 15:12] LABS: Partial Thromboplastin Time 42.1 SECS (23.9-33.8)
[2020-04-22 15:16] LABS: Albumin 2.3 G/DL (3.4-5.0); Bilirubin,Total 0.6 MG/DL (0.2-1.0); Calcium 8.8 MG/DL (8.5-10.1); Osmolality,Calculated 273.8 MOS/KG (273-304); Total Protein 8.8 G/DL (6.4-8.3)
[2020-04-22 15:24] LABS: Basophils # 0.1 10*3/uL (0.0-0.2); Basophils % 0.6 % (0.0-0.8); Eosinophils # 0.3 10*3/uL (0.0-0.87); Eosinophils % 3.8 % (0.00-10.9); Hematocrit 40.4 VOL% (42.0-52.0); Immature Granulocytes % 0.3 %; Immature Granulocytes Absolute 0.02 #; Lymphocytes # 1.6 10*3/uL (1.4-4.0); Lymphocytes % 19.5 % (21.2-54.2); Mean Corpuscular HGB Conc 29.7 GM/DL (32-36); Mean Corpuscular Volume 76.8 FL (87-102); Mean Platelet Volume 8.8 FL (9.6-12.0); Monocytes % 8.6 % (1.7-12.7); Neutrophils % 67.2 % (38.7-73.9); Platelet Count 398 T/CUMM (130-400); Red Blood Count 5.26 MC/CUMM (3.8-5.5); Red Cell Distribution Width 18.2 % (9.3-17.3); White Blood Count 7.9 T/CUMM (4-12)
[2020-04-22 15:31] LABS: Anisocytosis 1+; Eosinophils 3 % (0-10); Lymphocytes 20 % (20-55); Microcytosis 1+; Platelet Estimate Normal; Segmented Neutrophils 73 % (50-85); Total Cells Counted 100
[2020-04-22 15:32] LABS: Hypochromasia Slight
[2020-04-22 15:34] LABS: Barbiturates Screen,Urine Negative (Negative); Benzodiazepines Screen,Urine Negative (Negative); Cannabinoid Screen,Urine Negative (Negative); Opiate Screen,Urine Negative (Negative); Phencyclidine Screen,Urine Negative (Negative)
[2020-04-22 15:37] LABS: Bilirubin,Urine Negative (Negative); Blood, Urine Negative (Negative); Glucose,Urine (UA) Negative (Negative); Ketones,Urine Negative (Negative); Mucus,Urine Occasional /LPF (Occasional); Nitrite,Urine Negative (Negative); Protein,Urine Negative; RBC,Urine 1 /HPF (0-4); Urine Appearance CLEAR (Clear); Urine Color Straw (Yellow); Urine Specific Gravity 1.005 (1.001-1.035); Urine Urobilinogen < 2.0 EU/DL (0.2-1.0); WBC,Urine <1 /HPF (0-6)
[2020-04-22] MEDS ORDERED: GLUCAGON 1 MG VIAL IM PRN (18:50)
[2020-04-22] MEDS ORDERED: ONDANSETRON 4 MG/2 ML VIAL IV PRN (18:50)
[2020-04-22] MEDS ORDERED: DEXTROSE 50% 25 GM/50 ML VIAL IV PRN (18:50)
[2020-04-22] MEDS ORDERED: AZITHROMYCIN INJ 500 MG in SODIUM CHLORIDE 0.9% 250 ML IV SCH (19:00)
[2020-04-22] MEDS ORDERED: carvediloL 3.125 MG TABLET ONE (20:05)
[2020-04-22] MEDS ORDERED: SODIUM CHLORIDE 0.9% 100 ML IV ONE (20:05)
[2020-04-22] MEDS: cefTRIAXone 1,000 MG in SYRINGE 1 EACH IV SCH (20:14)
[2020-04-22] MEDS: carvediloL 12.5 MG TABLET PO SCH (21:00)
[2020-04-22] MEDS: ROSUVASTATIN 20 MG TABLET PO SCH (21:50)
[2020-04-22] MEDS: AZITHROMYCIN INJ 500 MG in SODIUM CHLORIDE 0.9% 250 ML IV SCH (21:50)
[2020-04-22 23:05] LABS: Troponin I 0.391 NG/ML (0.00-0.045)
[2020-04-23] MEDS: ALBUTEROL/IPRATROPIUM 3 ML NEB RESP TX SCH ×7 (00:15→23:54)
[2020-04-23 02:11] LABS: Basophils # 0.1 10*3/uL (0.0-0.2); Basophils % 0.7 % (0.0-0.8); Eosinophils # 0.3 10*3/uL (0.0-0.87); Eosinophils % 4.4 % (0.00-10.9); Hematocrit 36.8 VOL% (42.0-52.0); Hemoglobin 10.9 GM/DL (14.0-18.0); Immature Granulocytes % 0.3 %; Immature Granulocytes Absolute 0.02 #; Lymphocytes # 1.9 10*3/uL (1.4-4.0); Mean Corpuscular HGB Conc 29.6 GM/DL (32-36); Mean Corpuscular Volume 76.3 FL (87-102); Mean Platelet Volume 9.2 FL (9.6-12.0); Monocytes % 12.7 % (1.7-12.7); Neutrophils % 56.9 % (38.7-73.9); Red Blood Count 4.82 MC/CUMM (3.8-5.5); Red Cell Distribution Width 18.2 % (9.3-17.3); Risk Ratio 3.82; Thyroid Stimulating Hormone 0.797 uIU/ml (0.358-3.74); VLDL CHOLESTEROL 13.6 MG/DL; White Blood Count 7.5 T/CUMM (4-12)
[2020-04-23 02:13] LABS: Platelet Count 494 T/CUMM (130-400)
[2020-04-23 02:31] LABS: Calcium 8.2 MG/DL (8.5-10.1); Osmolality,Calculated 274.8 MOS/KG (273-304)
[2020-04-23 03:40] LABS: Hypochromasia 1+; Microcytosis 1+; Ovalocytes Slight; Platelet Estimate Adequate
[2020-04-23] MEDS: RIVAROXABAN 15 MG TABLET PO SCH ×3 (10:32→16:03)
[2020-04-23] MEDS: PANTOPRAZOLE 40 MG TABLET PO SCH ×2 (10:32→11:07)
[2020-04-23] MEDS: CLOPIDOGREL 75 MG TABLET PO SCH ×2 (10:32→11:07)
[2020-04-23] MEDS: carvediloL 12.5 MG TABLET PO SCH ×3 (10:32→21:40)
[2020-04-23] MEDS: SPIRONOLACTONE 25 MG TABLET PO SCH ×2 (10:32→11:06)
[2020-04-23] MEDS: FUROSEMIDE 40 MG TABLET PO SCH ×2 (10:32→11:06)
[2020-04-23] MEDS: LOSARTAN 25 MG TABLET PO SCH ×2 (10:32→11:06)
[2020-04-23] MEDS: ROSUVASTATIN 20 MG TABLET PO SCH (21:40)
[2020-04-23] MEDS: cefTRIAXone 1,000 MG in SYRINGE 1 EACH IV SCH (21:48)
[2020-04-23] MEDS ORDERED: SODIUM CHLORIDE 0.9% 250 ML IV ONE (22:23)
[2020-04-23] MEDS: AZITHROMYCIN INJ 500 MG in SODIUM CHLORIDE 0.9% 250 ML IV SCH (22:29)
[2020-04-24] MEDS: ALBUTEROL/IPRATROPIUM 3 ML NEB RESP TX SCH ×3 (03:18→10:52)
[2020-04-24 05:30] LABS: Basophils # 0.1 10*3/uL (0.0-0.2); Basophils % 1.1 % (0.0-0.8); Eosinophils # 0.2 10*3/uL (0.0-0.87); Eosinophils % 3.5 % (0.00-10.9); Hematocrit 37.5 VOL% (42.0-52.0); Immature Granulocytes % 0.2 %; Immature Granulocytes Absolute 0.01 #; Lymphocytes # 1.9 10*3/uL (1.4-4.0); Lymphocytes % 29.1 % (21.2-54.2); Mean Corpuscular HGB Conc 29.1 GM/DL (32-36); Mean Platelet Volume 9.4 FL (9.6-12.0); Monocytes % 11.2 % (1.7-12.7); Neutrophils % 54.9 % (38.7-73.9); Red Blood Count 4.87 MC/CUMM (3.8-5.5); Red Cell Distribution Width 18.1 % (9.3-17.3); White Blood Count 6.5 T/CUMM (4-12)
[2020-04-24 05:58] LABS: Calcium 8.6 MG/DL (8.5-10.1)
[2020-04-24 06:08] LABS: Hemoglobin 10.9 GM/DL (14.0-18.0); Platelet Count 365 T/CUMM (130-400)
[2020-04-24 06:20] LABS: Hypochromasia 1+; Microcytosis 1+
[2020-04-24 06:21] LABS: Platelet Estimate Adequate
[2020-04-24] MEDS: FUROSEMIDE 40 MG TABLET PO SCH (08:58)
[2020-04-24] MEDS: SPIRONOLACTONE 25 MG TABLET PO SCH (09:02)
[2020-04-24] MEDS: RIVAROXABAN 15 MG TABLET PO SCH (09:02)
[2020-04-24] MEDS: LOSARTAN 25 MG TABLET PO SCH (09:02)
[2020-04-24] MEDS: carvediloL 12.5 MG TABLET PO SCH (09:02)
[2020-04-24] MEDS: CLOPIDOGREL 75 MG TABLET PO SCH (09:03)
[2020-04-24] MEDS: PANTOPRAZOLE 40 MG TABLET PO SCH (09:03)
[2020-04-24 11:40] VITALS: BP 118/64
[2020-04-24] MEDS ORDERED: AZITHROMYCIN 250 MG TABLET PO SCH (12:00)
== END 2020-04-24 13:05 | disposition home or self-care (01) ==
LOC: EDUNIT# → EDBD → N.ED 13:57 → N.EDINP 13:57 → N.5E 21:10
PROVIDERS: ADMIT Internal Medicine; ATTEND Internal Medicine